=== PATIENT | female | born 2000 | race Caucasian/White ===

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

== ENCOUNTER 2022-01-26 20:35 | Emergency (ER) | payer MEDICAID, OTHER ==
[~2022-01-26] VITALS: Ht 152.4 cm; Wt 58.1 kg
[~2022-01-26 20:35] MED LIST changes: +HYDR-4004 PO; +LISI-486 PO; -LISI10TA11 PO; -ORE25 PO
[2022-01-26 20:45] VITALS: BP 130/76
--- NOTE | 2022-01-26 21:00 | NUR ---
Ultrasound at bedside.
--- NOTE | 2022-01-26 21:08 | NUR ---
LAB STATED SHE WILL COME BACK AFTER ULTRASOUND
[2022-01-26 21:27] LABS: APPEARANCE,URINE HAZY (CLEAR); BILIRUBIN,URINE 1+ (NEGATIVE); BLOOD, URINE 3+ (NEGATIVE); COLOR,URINE AMBER (YELLOW); LEUKOCYTE ESTERASE ,URINE TRACE (NEGATIVE); NITRITE, URINE NEGATIVE (NEGATIVE); UGLUCOSE NEGATIVE (NEGATIVE)
[2022-01-26 21:40] LABS: OTHER CASTS, URINE None Seen /LPF (None Seen); RBC,URINE 11-20 (MOD) /HPF (0-5); WBC,URINE 0-5 /HPF (0-5)
--- NOTE | 2022-01-26 21:51 | NUR ---
LAB AT BEDSIDE
--- NOTE | 2022-01-26 21:54 | NUR ---
Dr. Hernandez examining patient.
--- NOTE | 2022-01-26 21:59 | NUR ---
21 YO F 10 WEEKS BIB SELF WITH C/C OF VAGINAL BLEEDING X3-4DAYS. +N/V. DENIES BLOOD IN EMESIS. REPORTS 10 LOWER ABD CRAMPING AND INCREASED PAIN WITH PALPITATION. PT WAS SEEN AT ANOTHER HOSPITAL AND WAS TOLD THERES WAS NO HEART BEAT IN THE ULTRASOUND. PT DENIES TAKING MEDS FOR PAIN. DENIES HX, RX AND ALLERGIES LMP:11/23
[2022-01-26] MEDS ORDERED: ACETAMINOPHEN EXTRA STRENGTH 500 MG TAB PO ONE (22:00)
[2022-01-26 22:02] LABS: BASOPHILS # (AUTO) 0.1 K/uL (0.00-0.22); BASOPHILS % (AUTO) 0.7 % (0.0-2.0); EOSINOPHILS # (AUTO) 0.1 K/uL (0-0.4); EOSINOPHILS % (AUTO) 0.4 % (0.0-4.0); HEMATOCRIT 43.7 % (36-48); HEMOGLOBIN 14.5 g/dL (12.0-16.0); LYMPHOCYTES % (AUTO) 13.2 % (20.5-51.1); MEAN CORPUSCULAR HEMOGLOBIN 28 pg (27-31); MEAN CORPUSCULAR HGB CONC 33 g/dL (33-37); MONOCYTES # (AUTO) 0.8 K/uL (0.8-1.0); MONOCYTES % (AUTO) 5.4 % (1.7-9.3); NEUTROPHILS # (AUTO) 12.3 K/uL (1.8-7.7); NEUTROPHILS % (AUTO) 80.3 % (42.2-75.2); PLATELET COUNT (AUTO) 329 K/uL (140-450); RED BLOOD CELL COUNT(AUTO) 5.14 MIL/uL (4.20-5.40); RED CELL DISTRIBUTION WIDTH 13.9 % (11.6-13.7); WHITE BLOOD COUNT (AUTO) 15.3 K/uL (4.8-10.8)
[2022-01-26 23:09] VITALS: BP 130/76
--- NOTE | 2022-01-26 23:09 | NUR ---
Patient discharged with v/s stable. Written and verbal after care instructions given and explained. Patient verbalized understanding. Ambulatory with steady gait. All questions addressed prior to discharge. Advised to follow up with PMD.
== END 2022-01-26 23:09 | disposition home or self-care (01) ==
LOC: MED 20:35
DX: O20.0 Threatened abortion (principal); Z3A.10 10 weeks gestation of pregnancy; Z79.899 Other long term (current) drug therapy
CPT/HCPCS: 36415; 76817; 81001; 81025; 84702; 85025; 99284; Q0092